=== PATIENT | male | born 1930 | race Caucasian/White ===

== ENCOUNTER 2018-03-25 11:05 | Emergency (ER) | payer OTHER, BC ==
[~2018-03-25] VITALS: Ht 172.7 cm; Wt 98.9 kg
[2018-03-25 11:11] VITALS: Ht 172.7 cm; Wt 98.9 kg
[2018-03-25 11:44] LABS: microscopic required? NO
[2018-03-25 11:58] LABS: BASOPHIL % 0.6 % (0-2); PLATELET COUNT 260 x10^3mcL (130-400); RED CELL DISTRIBUTION WIDTH 13.5 % (11.5-14.5)
[2018-03-25 12:04] LABS: CALCIUM 8.9 mg/dL (8.5-10.1); CHLORIDE SERUM 98 mmol/L (98-107); CREATININE SERUM 1.1 mg/dL (0.7-1.3); GLUCOSE SERUM 104 mg/dL (74-106); POTASSIUM SERUM 4.8 mmol/L (3.5-5.1); SODIUM SERUM 131 mmol/L (136-145)
[2018-03-25 12:09] LABS: ALBUMIN 3.7 g/dL (3.4-5.0); ALKALINE PHOSPHATASE 147 U/L (46-116); ALT/SGPT 19 U/L (16-63); AST/SGOT 19 U/L (15-37); BILIRUBIN TOTAL 0.41 mg/dL (0.20-1.00); TOTAL PROTEIN, SERUM 7.3 g/dL (6.4-8.2)
[2018-03-25] MEDS ORDERED: ELIQUIS5 MG PO (12:25)
[2018-03-25] MEDS ORDERED: DILTIAZEM CD180 MG PO (12:26)
[2018-03-25] MEDS ORDERED: METOPROLOL SUCC50 M2 PO (12:26)
[2018-03-25 12:27] LABS: urine erythrocyte NEGATIVE (NEGATIVE)
[2018-03-25] MEDS ORDERED: SIMVASTATIN10 M1 PO (12:27)
[2018-03-25] MEDS ORDERED: TEGRETOL200 MG PO (12:27)
[2018-03-25] MEDS ORDERED: SERTRALINE100 M1 PO (12:27)
[2018-03-25] MEDS ORDERED: AVODART0.5 M1 PO (12:28)
[2018-03-25] MEDS ORDERED: LORAZEPAM0.5 MG PO (12:28)
[2018-03-25] MEDS ORDERED: PRESERVISION A1 EACH PO (12:29)
[2018-03-25] MEDS ORDERED: STOOL SOFTENER1 TAB PO (12:29)
[2018-03-25] MEDS ORDERED: CLARITIN LIQUI-10 MG PO (12:30)
[2018-03-25] MEDS ORDERED: CULTURELLE1 EACH PO (12:30)
[2018-03-25] MEDS ORDERED: D3-50001 TAB PO (12:31)
[2018-03-25 14:04] VITALS: BP 162/85
== END 2018-03-25 14:04 | disposition home or self-care (01) ==
LOC: ED 11:05
PROVIDERS: Emergency Medicine
DX: N39.0 Urinary tract infection, site not specified (principal); I10 Essential (primary) hypertension; I48.91 Unspecified atrial fibrillation
CPT/HCPCS: 36415; Q0092

== ENCOUNTER 2018-04-01 17:05 | Inpatient (IN) | payer OTHER, BC ==
[~2018-04-01] VITALS: Ht 175.3 cm; Wt 97.3 kg
[~2018-04-01 17:05] MED LIST: AVODART0.5 M1 PO; CLARITIN LIQUI-10 MG PO; CULTURELLE1 EACH PO; D3-50001 TAB PO; DILTIAZEM CD180 MG PO; ELIQUIS5 MG PO; LORAZEPAM0.5 MG PO; METOPROLOL SUCC50 M2 PO; PRESERVISION A1 EACH PO; SERTRALINE100 M1 PO; SIMVASTATIN10 M1 PO; STOOL SOFTENER1 TAB PO; TEGRETOL200 MG PO
[2018-04-01 18:03] LABS: microscopic required? NO
[2018-04-01 18:31] LABS: BASOPHIL % 0.3 % (0-2); PLATELET COUNT 312 x10^3mcL (130-400); RED CELL DISTRIBUTION WIDTH 13.5 % (11.5-14.5)
[2018-04-01 18:33] LABS: UA SPECIFIC GRAVITY 1.025 (1.005-1.035); urine erythrocyte NEGATIVE (NEGATIVE)
[2018-04-01 18:34] LABS: CALCIUM 8.9 mg/dL (8.5-10.1); CARBON DIOXIDE 27.2 mmol/L (21-32); CHLORIDE SERUM 95 mmol/L (98-107); CREATININE SERUM 1.1 mg/dL (0.7-1.3); GLUCOSE SERUM 119 mg/dL (74-106); POTASSIUM SERUM 4.5 mmol/L (3.5-5.1); SODIUM SERUM 131 mmol/L (136-145)
[2018-04-01 18:38] LABS: ALBUMIN 3.8 g/dL (3.4-5.0); ALKALINE PHOSPHATASE 155 U/L (46-116); ALT/SGPT 19 U/L (16-63); AST/SGOT 19 U/L (15-37); BILIRUBIN TOTAL 0.2 mg/dL (0.20-1.00); LIPASE 167 IU/L (73-393); TOTAL PROTEIN, SERUM 7.9 g/dL (6.4-8.2)
[2018-04-01 19:39] LABS: T3 TOTAL 0.82 ng/mL
[2018-04-01 19:41] LABS: MAGNESIUM 2.1 mg/dL (1.8-2.4); PHOSPHOROUS 3.6 mg/dL (2.5-4.9)
[2018-04-01 19:43] LABS: FREE T4 0.76 ng/dL (0.76-1.46); T4(THYROXINE) 6.1 ug/dL (4.7-13.3)
[2018-04-01 20:06] VITALS: BP 134/82
[2018-04-01] MEDS ORDERED: METOPROLOL TART50 MG PO (20:09)
[2018-04-01] MEDS ORDERED: SERTRALINE50 M1 PO (20:18)
[2018-04-01] MEDS ORDERED: DUTASTERIDE-TA1 EACH PO (20:21)
[2018-04-02 05:55] VITALS: BP 113/83
[2018-04-02 06:43] LABS: BASOPHIL % 0.4 % (0-2); PLATELET COUNT 261 x10^3mcL (130-400); RED CELL DISTRIBUTION WIDTH 13.4 % (11.5-14.5)
[2018-04-02 07:01] LABS: CALCIUM 8.7 mg/dL (8.5-10.1); CHLORIDE SERUM 99 mmol/L (98-107); GLUCOSE SERUM 91 mg/dL (74-106); POTASSIUM SERUM 4.4 mmol/L (3.5-5.1); SODIUM SERUM 131 mmol/L (136-145)
[2018-04-02 10:16] VITALS: BP 99/67
[2018-04-02 11:48] LABS: burr cell (echinocyte) 1+; rbc morphology (normal/abnorm) ABNORMAL (NORMAL)
[2018-04-02 18:23] VITALS: BP 115/71
[2018-04-02 22:00] VITALS: BP 156/82
[2018-04-03 05:19] VITALS: BP 134/83
[2018-04-03 09:36] VITALS: BP 119/58
[2018-04-03 17:57] VITALS: BP 115/62
[2018-04-03 18:03] VITALS: Ht 175.3 cm; Wt 97.3 kg
[2018-04-03 21:32] VITALS: BP 167/56
[2018-04-04 06:11] VITALS: BP 149/89
[2018-04-04 10:07] VITALS: BP 142/79
[2018-04-04 12:46] LABS: BASOPHIL % 0.8 % (0-2); PLATELET COUNT 254 x10^3mcL (130-400); RED CELL DISTRIBUTION WIDTH 12.6 % (11.5-14.5)
[2018-04-04 13:16] LABS: CALCIUM 8.8 mg/dL (8.5-10.1); CARBON DIOXIDE 21.2 mmol/L (21-32); CHLORIDE SERUM 100 mmol/L (98-107); GLUCOSE SERUM 95 mg/dL (74-106); MAGNESIUM 1.7 mg/dL (1.8-2.4); PHOSPHOROUS 3.2 mg/dL (2.5-4.9); POTASSIUM SERUM 4.3 mmol/L (3.5-5.1); SODIUM SERUM 129 mmol/L (136-145)
[2018-04-04 17:08] VITALS: BP 147/95
[2018-04-04 20:45] VITALS: BP 133/83
[2018-04-04 22:27] VITALS: BP 133/83
[2018-04-04 22:39] VITALS: BP 133/83
== END 2018-04-04 23:22 | disposition home or self-care (01) | DRG 391 ==
LOC: ED 17:05 → MU 19:07
PROVIDERS: Emergency Medicine; Family Medicine
DX: K57.32 Diverticulitis of large intestine without perforation or abscess without bleeding (principal); K65.9 Peritonitis, unspecified; E87.1 Hypo-osmolality and hyponatremia; I48.91 Unspecified atrial fibrillation; R73.03 Prediabetes; I10 Essential (primary) hypertension; E66.9 Obesity, unspecified; F32.9 Major depressive disorder, single episode, unspecified; Z68.33 Body mass index [BMI] 33.0-33.9, adult; Z87.891 Personal history of nicotine dependence; Z85.820 Personal history of malignant melanoma of skin; Z92.21 Personal history of antineoplastic chemotherapy; Z92.3 Personal history of irradiation; Z79.01 Long term (current) use of anticoagulants; Z22.322 Carrier or suspected carrier of Methicillin resistant Staphylococcus aureus
CPT/HCPCS: 83880; 84439; 97116-GP; J1956; J2270; J2405; J2543; J3475; J3490; J7030; Q0092

== ENCOUNTER 2018-05-23 10:29 | Inpatient (IN) | payer OTHER, BC ==
[~2018-05-23] VITALS: Ht 175.3 cm; Wt 100.2 kg
[~2018-05-23 10:29] MED LIST changes: +DUTASTERIDE-TA1 EACH PO; +METOPROLOL TART50 MG PO; +SERTRALINE50 M1 PO
--- NOTE | 2018-05-23 10:57 | NUR ---
PT AWAKE AND ALERT. PT C/O BLQ PAIN SINCE THIS MORNING WITH INCREASING SEVERITY. PT HAS HX OF MACULAR DEGENERATION, DIVERTICULITOUS, MELANOMA, AND AFIB. PT DENIES SEEING BLOOD IN STOOL OR URINE. PT ON FULL CM. MSE COMPLETED BY DR KHOURY. NARAYAN. RESP E/U
[2018-05-23 11:35] LABS: BASOPHIL % 0.4 % (0-2); PLATELET COUNT 256 x10^3mcL (130-400); RED CELL DISTRIBUTION WIDTH 13.8 % (11.5-14.5)
[2018-05-23 11:36] LABS: CALCIUM 8.5 mg/dL (8.5-10.1); CARBON DIOXIDE 24.2 mmol/L (21-32); CHLORIDE SERUM 102 mmol/L (98-107); CREATININE SERUM 1.1 mg/dL (0.7-1.3); GLUCOSE SERUM 121 mg/dL (74-106); POTASSIUM SERUM 4.4 mmol/L (3.5-5.1); SODIUM SERUM 134 mmol/L (136-145)
[2018-05-23 11:41] LABS: ALBUMIN 3.4 g/dL (3.4-5.0); ALKALINE PHOSPHATASE 115 U/L (46-116); ALT/SGPT 21 U/L (16-63); AST/SGOT 17 U/L (15-37); BILIRUBIN TOTAL 0.3 mg/dL (0.20-1.00); LIPASE 145 IU/L (73-393); TOTAL PROTEIN, SERUM 6.8 g/dL (6.4-8.2)
--- NOTE | 2018-05-23 11:55 | NUR ---
PT TAKEN TO CT VIA KENNETH
--- NOTE | 2018-05-23 14:09 | NUR ---
PT RESTING ON ED GURNEY. PT EASILY AROUSABLE. NAD. RESP E/U. PT ON FULL CM.
--- NOTE | 2018-05-23 14:42 | NUR ---
RECEIVED PT FROM ED VIA [facility], CAME IN DUE TO ABDOMINAL PAIN. AAOX4, W/ PERIODS OF SOME CONFUSION PER PT'S DAUGHTER. ABLE TO FOLLOW COMMANDS. NO SOB NOTED. DENIES CHEST PAIN/PRESSURE. STATED THAT HE HAS MILD ABDOMINAL PAIN, DENIES NAUSEA/VOMITING. ABDOMEN IS SOFT AND ROUND. LAST BM TODAT. VOIDS. C/O FREQUENT URINATION. SIDE RAILS UPX2. CALL LIGHT ON REACH. DAUGHTER AND MEDICAL STUDENT AT BEDSIDE. ENDORSED TO PRIMARY NURSE KRYSTALIN FOR CONTINUITY OF CARE
[2018-05-23 15:05] VITALS: BP 147/93
[2018-05-23 15:07] VITALS: Ht 175.3 cm; Wt 100.2 kg
[2018-05-23 15:20] LABS: CHOLESTEROL/HDL RATIO 2.7; MAGNESIUM 2.3 mg/dL (1.8-2.4); PHOSPHOROUS 3.6 mg/dL (2.5-4.9)
--- NOTE | 2018-05-23 16:02 | NUR ---
PATIENT AND PATIENT'S DAUGHTER MADE AWARE PLAN OF CARE. KEPT NPO.
--- NOTE | 2018-05-23 16:05 | NUR ---
TELEMETRY#5 INPLACED AFIB AT 75. DENIES CHEST PAIN.
[2018-05-23 16:15] LABS: microscopic required? NO
[2018-05-23 16:31] LABS: UA SPECIFIC GRAVITY 1.025 (1.005-1.035); urine erythrocyte NEGATIVE (NEGATIVE)
[2018-05-23 16:37] VITALS: BP 140/85
--- NOTE | 2018-05-23 18:54 | NUR ---
STATED MILD ABDOMINAL PAIN, REFUSED PAIN MEDS OFFERRED. FLAGYL PO GIVEN, DENIES NAUSEA. FORGETFUL AT TIMES. KEPT NPO. IVF NS INFUSING WELL.
--- NOTE | 2018-05-23 19:30 | NUR ---
AOX4. TELE #5, A FIB, HR 70'S. LUNGS CLEAR ON RA. PULSES PALPABLE. NO EDEMA. BOWEL SOUNDS ACTIVE. C/O MILD ABD PAIN. VOIDS FREELY. AMBULATES WITH ASSISTANCE. BRUISE NOTED TO R THIGH. OTHERWISE SKIN INTACT/WARM/DRY. DENIES ALL OTHER PAIN. IV TO RH, PATENT AND INFUSING. DAUGHTER AT BEDSIDE. BED IN LOWEST POSITION, 2 SIDE RAILS UP, CALL LIGHT IN REACH. INSTRUCTED TO CALL FOR ASSISTANCE.
[2018-05-23 20:26] VITALS: BP 128/75
[2018-05-23 21:05] VITALS: BP 124/77
--- NOTE | 2018-05-24 01:39 | NUR ---
RESTING IN BED WITH EYES CLOSED. BREATHING EVEN AND UNLABORED ON RA. NO ACUTE DISTRESS NOTED. WILL CONTINUE TO MONITOR.
[2018-05-24 05:19] VITALS: BP 103/61
--- NOTE | 2018-05-24 07:23 | NUR ---
RECEIVED PATIENT FROM KENYA HARRINGTON. PT RESTING COMFORTABLY IN BED. ALL NEEDS MET.
[2018-05-24 08:44] VITALS: BP 136/88
--- NOTE | 2018-05-24 10:04 | NUR ---
IN TO SEE PATIENT AND ADMINISTER MEDICATION. (SEE eMAR). PT RESTING COMFORTABLY IN BED. ALL NEEDS MET.
--- NOTE | 2018-05-24 11:47 | NUR ---
IN TO SEE PATIENT AND ADMINISTER MEDICATION. (SEE eMAR). PT RESTING COMFORTABLY IN BED. ALL NEEDS MET.
--- NOTE | 2018-05-24 15:56 | NUR ---
IN TO SEE PATIENT AND ADMINISTER MEDICATION. (SEE eMAR). PT RESTING COMFORTABLY IN BED. ALL NEEDS MET.
[2018-05-24 16:41] VITALS: BP 125/80
--- NOTE | 2018-05-24 19:10 | NUR ---
REC'D PT FROM DAY NURSE. DAUGHTER AT BEDSIDE. PT SITTING AT THE SIDE OF THE BED. AAOX3. FORGETFUL AT TIMES. C/O L SIDED THROBBING STEVENSON 10/20. DID NOT WANT ANY PAIN MEDS BUT INFORMED FIORICET IS DUE AT 1999. FOLLOWS COMMANDS, SPEECH CLEAR, NO FACIAL DROOP. TELE 5. DENIES CP, DIZZINESS, OR PALPITATIONS. NO EDEMA NOTED. DENIES RESP DISTRESS OR SOB. BREATHING EVEN/UNLABORED ON RA. ABD SOFT/ROUND. DENIES PAIN AT REST. REPORTS ABD TENDERNESS TO MID LOWER AREA WITH PALPATION. DENIES N/V. VOIDING FREELY. MILD GEN WEAKNESS. AMBULATORY. USES WALKER. ECCHYMOSIS TO R THIGH. IV TO RH PATENT AND INFUSING, SITE WNL. CALL LIGHT WITHIN REACH, BED AT LOWEST POSITION. WILL CONTINUE TO MONITOR.
--- NOTE | 2018-05-24 19:20 | NUR ---
REPORT GIVEN TO MADHAVI HARRINGTON. PT RESTING COMFORTABLY IN BED WITH FAMILY AT BEDSIDE. ALL NEEDS MET. ALL QUESTIONS AND CONCERNS ADDRESSED. ALL CARES ENDORSED.
[2018-05-24 20:49] VITALS: BP 134/77
--- NOTE | 2018-05-24 22:35 | NUR ---
PT RESTLESS AND C/O SOME ANXIETY. ATIVAN GIVEN PER ORDER. WILL MONITOR FOR RELIEF.
--- NOTE | 2018-05-25 01:43 | NUR ---
PT UP TO VOID. PT AWARE HE IS IN THE HOSPITAL AND AWARE OF TELE FOR CARDIAC MONITORING BUT STILL REMOVES IT OCCASIONALLY. INSTRUCTED TO KEEP TELE ON. PT VERBALIZED UNDERTSTANDING. RESTING IN BED LAYING ON L SIDE. BREATHING EVEN/UNLABORED ON RA. NO COMPLAINTS OF PAIN AT THIS TIME. CALL LIGHT WITHIN REACH, BED AT LOWEST POSITION. WILL CONTINUE TO MONITOR.
[2018-05-25 05:32] VITALS: BP 118/73
--- NOTE | 2018-05-25 05:53 | NUR ---
PT RESTING IN BED. AWAKENS WITH VERBAL STIMULI. PT HAS BEEN TAKING TELE OFF PERIODICALLY. STATES HE IS UNABLE TO SLEEP WITH IT ON. AGAIN INFORMED OF IMPORTANCE OF KEEPING TELE IN PLACE TO MONITOR HIS RHYTHM. PT VERBALIZED UNDERSTANDING. TELE 5 CURRENTLY READING A FIB WITH HR 80'S. DENIES ABD PAIN AT THIS TIME, NO BM TONIGHT. REPORTS MILD STEVENSON BUT DENIED PAIN MEDS HE HAS "TAKEN TOO MUCH MEDICINE ALREADY." NO SIGNIFICANT CHANGES DURING SHIFT. CALL LIGHT WITHIN REACH, BED AT LOWEST POSITION. WILL ENDORSE TO DAY NURSE.
[2018-05-25 06:36] LABS: BASOPHIL % 0.4 % (0-2); PLATELET COUNT 213 x10^3mcL (130-400); RED CELL DISTRIBUTION WIDTH 13.2 % (11.5-14.5)
[2018-05-25 06:56] LABS: CALCIUM 9.1 mg/dL (8.5-10.1); CARBON DIOXIDE 26.9 mmol/L (21-32); CHLORIDE SERUM 103 mmol/L (98-107); GLUCOSE SERUM 101 mg/dL (74-106); MAGNESIUM 2.1 mg/dL (1.8-2.4); PHOSPHOROUS 3.6 mg/dL (2.5-4.9); POTASSIUM SERUM 4.8 mmol/L (3.5-5.1); SODIUM SERUM 139 mmol/L (136-145)
--- NOTE | 2018-05-25 07:30 | NUR ---
RECEIVED PT STANDING AT BEDSIDE. PT IS A/A/OX3 FORGETFUL AND DISORIENTED AT TIMES. RESP EVEN AND UNLABORED WITH CLEAR BS BILAT. DENIES ANY SOB/CP/PRESSURE. AFIB ON TELE HR 80S, ON ELEQUIS. NO EDEMA NOTED WITH IVF TO RH NS AT 40ML/HR. ABD SOFT, OBESE, TENDER TO TOUCH TO LOWER ABD. WITH ACTIVE DIVERTICULITIS, NOTED WITH LOOSE STOOLS. VOIDING FREELY WITH OCC STRESS INCONTINENCE. AMBULATORY WITH SUPERVISION. CALL LIGHT IN REACH NEEDS ATTENDED TO.
[2018-05-25 09:24] VITALS: BP 124/75
--- NOTE | 2018-05-25 09:53 | NUR ---
AM MEDS GIVEN FAMILY AT BEDSIDE REPORTED THEY HAS SPOKEN WITH DR. TRINH. UPDATED ON CONDITION. CALL LIGHT IN REACH NEEDS ATTENDED TO. PT INSTRUCTED TO CALL FOR ASSISTANCE SINCE HE WAS GIVEN LAXITIVES AND WILL EXPERIENCE URGENCY TO BR.
--- NOTE | 2018-05-25 10:00 | NUR ---
PT C/O STEVENSON 09/20 TO LEFT SIDE, MEDICATED WITH FIORICET PO ORDER.
[2018-05-25 12:52] VITALS: BP 134/82
--- NOTE | 2018-05-25 16:20 | NUR ---
PT C/O STEVENSON 6/ TO LEFT SIDE. DENIES ANY BLURRED VISION REPORTS CHRONIC STEVENSON D/T INJURY TO C-SPINE. MEDICATED WITH FIORICET PO ORDERED. CONT TO MONITOR.
[2018-05-25 17:32] VITALS: BP 133/77
--- NOTE | 2018-05-25 18:43 | NUR ---
DR. TRINH AT THE [facility]ATION GIVEN REPORT REQUESTED FROM PRIOR COLONOSCOPY. MD REVIEW REPORT AND IS CURRENTLY AT BEDSIDE SPEAKING WITH FAMILY.
--- NOTE | 2018-05-25 19:30 | NUR ---
PT IS A/O x4, FORGETFUL AT TIMES. DENIES ANY STEVENSON OR DIZZINESS. POOR VISION. ON TELE #5, A-FIB. DENIES ANY CHEST PAIN OR PRESSURE. PULSES ARE PRESENT. NO EDEMA NOTED. LUNGS CLEAR IN ALL [place]. ON RA, DENIES ANY SOB. EQUAL CHEST RISE AND FALL. BOWEL SOUNDS PRESENT x4. DENIES ANY ABD DISTRESS. ABD SOFT AND FLAT. SKIN WARM AND INTACT. DENIES ANY PAIN AT THIS TIME. SALINE LOCKED ON RH, INTACT AND CLEAN. PT SITTING UP IN THE CHAIR. DAUGHTER AT SIDE. CALL LIGHT WITHIN REACH. [facility]
[2018-05-25 21:15] VITALS: BP 114/67
--- NOTE | 2018-05-26 01:16 | NUR ---
PT RESTING IN BED WITH BOTH EYES CLOSED. BREATHING EVEN AND UNALBORED. NO SIGN OF DISTRESS NOTED. BED IS AT LOWEST SETTING. CALL LIGHT WITHIN REACH. WILL CONTINUE TO MONITOR.
[2018-05-26 05:18] VITALS: BP 130/85
[2018-05-26 06:34] LABS: CARBON DIOXIDE 24.1 mmol/L (21-32); CHLORIDE SERUM 101 mmol/L (98-107); CREATININE SERUM 1.1 mg/dL (0.7-1.3); GLUCOSE SERUM 99 mg/dL (74-106); PHOSPHOROUS 3.4 mg/dL (2.5-4.9); POTASSIUM SERUM 4.2 mmol/L (3.5-5.1); SODIUM SERUM 134 mmol/L (136-145)
--- NOTE | 2018-05-26 06:52 | NUR ---
PT IS RESTING IN BED. NO SIGN OF DISTRESS. BED IS AT LOWEST SETTING. NO ACUTE EVENT OCCURED AT NIGHT. WILL ENDORSE TO AM NURSE.
[2018-05-26 07:06] LABS: BASOPHIL % 0.3 % (0-2); PLATELET COUNT 212 x10^3mcL (130-400); RED CELL DISTRIBUTION WIDTH 13.3 % (11.5-14.5)
--- NOTE | 2018-05-26 07:20 | NUR ---
SEEN WALKING USING WALKER TO BATHROOM NO ANY DISTRESS NOTED, BREATHING ON ROOM AIR. DENIES PAIN. ON CARDIAC DIET. TELE#5 AFIB HR=84. ON ELIQUIS. S/L TO HAND INTACT AND PATENT. PLAN OF CARE INFORMED. CALL LIGHT PLACED WITHIN EASY REACH. SIDERAILS UP X2.
[2018-05-26 09:53] VITALS: BP 115/74
--- NOTE | 2018-05-26 11:51 | NUR ---
Initial Nutrition Assessment/Nutrition Consult Dx: Acute diverticulitis PMHx: Diverticulosis, A-Fib, macular degeneration, HTN, depression, melanoma on L arm (chemo and radiation tx) PSHx: Appendectomy, cholecystectomy, MSK, lymph node resection Labs: (05/26) Na 134L< K 4.2, BG 99, BUN 16, Cr 1.1, A1c 6, WBC 6.8, H/H 12.8L/37L Meds: Ativan, Cardizem, Claritin, Eliquis, Flagyl, Lipitor, Lopressor, Levaquin, Metamucil, Miralax, [place], Proscar, Tegretol, Tylenol, Vit C, Vit D, Zofran, Zoloft Diet: Cardiac PO Intake: (05/26) B: 80% (05/25) B/L/D 100% Ht: 69" (175 cm) Wt: 220# (100.2 kg) BMI: 32.6 (Obese Class I) IBW: 160# %IBW: 138% AJBW: 175# (79.5 kg) UBW: 200-210# Age: 87 y/o elderly male Food Allergies: NKFA Skin: Intact Robert: 20 Edema: None GI: Last BM x 6 (05/26) Per H&P, pt. admitted with abdominal pain in the lower suprapubic region associated with altered mental status as observed by daughter, when pt. usually has flare-ups. Recently admitted to facility in March 2018 for similar symptoms. Pt. has a history of 6 diverticulitis attacks per provider. Abdominal CT conducted on 05/23/18 with findings suggesting moderate sigmoid diverticulosis with surrounding fat stranding in patterns of acute diverticulitis per provider notes. Pt. endorses improved appetite that is fair to good and is tolerating current diet well. Reports occasional abdominal pain r/t recent flare-up attack, but no c/o GI distress at this time. C: Diet instructions for diverticulosis/diverticulitis Problem with: No c/o N/V/D/C Problems with: Chewing: N Swallowing: N Current appetite: Fair to good, improved since admission Recent wt change: None %wt change: N/A Vitamin/Supplement use: Metamucil Special diet at home: Regular, high fiber diet Physical activity: Ambulates utilizing walker at baseline Education: Diet education provided on the foods recommended/not recommended during diverticulitis flare up. Encouraged pt. to consume adequate amounts of fiber and fluids, especially when asymptomatic. Provided NCM handout on low-fiber/high fiber diet/meal sample plan. Pt. verbalized understanding for diet education material. Estimated Nutritional Needs Based on adjusted body weight 79.5 kg: Energy: 9399-4394 kcal/d (25-27 kcal/kg- adult maintenance) Protein: 80-95 g/d (1.0-1.2 g/kg)-maintenance and preservation of lean body mass Fluid: 7788-4674 ml/d (1 ml/kcal-fluid balance) or per doctor Nutrition Diagnosis 1. Altered GI tract function r/t recent bouts of diverticulitis and history of diverticulosis AEB pt. noted with loose stools since admission and continued occasional c/o abdominal pain. Intervention/RD recommendations 1. Continue Cardiac diet as ordered and as tolerated, as pt. is eating well and is tolerating diet well at this time. 2. If PO intake <75% by following assessment, will recommend ONS to supplement diet. Monitor/Evaluate Goal: PO intake at least 75% of estimated needs Monitor: PO intake, Labs, GI function, diet tolerance F/U in 7 days as low risk (06/02)
[2018-05-26 13:11] VITALS: BP 115/74
--- NOTE | 2018-05-26 13:45 | NUR ---
DISCHARGE INSTRUCTION EXPLAINED AND GIVEN TO PATIENT'S DAUGHTER WHO IS AAOX4. S/L TO RT REMOVED WITH CATHETER INTACT, NO REDNESS OR SWELLING TO SITE, DRSG APPLIED. TELE#5 RETURNED TO [place]. CONDITION STABLE UPON DISCHARGE. BROUGHT VIA WC ACCOMPANIED BY NICKI RAMIRES AND PATIENT'S DAUGHTER TO LOBBY.
== END 2018-05-26 13:51 | disposition home or self-care (01) | DRG 391 ==
LOC: ED 10:29 → MU 13:30 → DU 13:30 → MU 14:50 → DU 05-24 07:24
PROVIDERS: Emergency Medicine; Family Medicine; ADMIT Internal Medicine
DX: K57.32 Diverticulitis of large intestine without perforation or abscess without bleeding (principal); K65.9 Peritonitis, unspecified; E87.1 Hypo-osmolality and hyponatremia; J98.11 Atelectasis; F41.8 Other specified anxiety disorders; I48.91 Unspecified atrial fibrillation; I11.9 Hypertensive heart disease without heart failure; I25.10 Atherosclerotic heart disease of native coronary artery without angina pectoris; K59.00 Constipation, unspecified; R73.03 Prediabetes; N40.0 Benign prostatic hyperplasia without lower urinary tract symptoms; E66.9 Obesity, unspecified; Z68.32 Body mass index [BMI] 32.0-32.9, adult; Z87.891 Personal history of nicotine dependence; Z85.820 Personal history of malignant melanoma of skin; Z92.21 Personal history of antineoplastic chemotherapy; Z92.3 Personal history of irradiation; Z79.01 Long term (current) use of anticoagulants
CPT/HCPCS: 83880; 87046; 87046-59; J1956; J3490; J7030; Q0092

== ENCOUNTER 2018-06-01 20:02 | Inpatient (IN) | payer OTHER, BC ==
[~2018-06-01] VITALS: Ht 175.3 cm; Wt 98.1 kg
[2018-06-01 20:14] VITALS: Ht 175.3 cm; Wt 98.1 kg
--- NOTE | 2018-06-01 20:19 | NUR ---
EKG BEING DONE.
[2018-06-01 21:08] LABS: BASOPHIL % 0.5 % (0-2); PLATELET COUNT 235 x10^3mcL (130-400); RED CELL DISTRIBUTION WIDTH 13.7 % (11.5-14.5)
[2018-06-01 21:29] LABS: CALCIUM 8.6 mg/dL (8.5-10.1); CARBON DIOXIDE 21.1 mmol/L (21-32); CHLORIDE SERUM 97 mmol/L (98-107); CREATININE SERUM 1.1 mg/dL (0.7-1.3); GLUCOSE SERUM 124 mg/dL (74-106); POTASSIUM SERUM 4.5 mmol/L (3.5-5.1); SODIUM SERUM 128 mmol/L (136-145)
[2018-06-01 21:39] LABS: T3 TOTAL 0.84 ng/mL
[2018-06-01 21:59] LABS: CK-MB 1.4 ng/mL (0-3.6)
[2018-06-01 22:00] LABS: ALBUMIN 3.4 g/dL (3.4-5.0); ALKALINE PHOSPHATASE 132 U/L (46-116); ALT/SGPT 13 U/L (16-63); AST/SGOT 23 U/L (15-37); BILIRUBIN TOTAL 0.36 mg/dL (0.20-1.00); C REACTIVE PROTEIN 1.6 mg/dL (<=0.9); ERYTHROCYTE SED RATE 25 mm/hr (0-20); TOTAL PROTEIN, SERUM 7.1 g/dL (6.4-8.2)
--- NOTE | 2018-06-01 22:14 | NUR ---
PT UP TO BEDSIDE FOR UA ATTEMPT.
[2018-06-01 22:20] LABS: FREE T4 0.92 ng/dL (0.76-1.46); FREE THYROXINE INDEX 1.9 ug/dL (1.4-4.5); T4(THYROXINE) 5.4 ug/dL (4.7-13.3)
--- NOTE | 2018-06-01 23:21 | NUR ---
REPORT TO JUANY ARORA [facility].
[2018-06-01 23:38] VITALS: BP 127/83
--- NOTE | 2018-06-01 23:41 | NUR ---
RECEIVED PT FROM ED VIA KRISTA. ORIENTED PT TO ROOM AND SURROUNDINGS. IV NOTED TO RFA PATENT AND INTACT. TELE 1 PLACED ON PT READING AFIB. INSTRUCTED PT ON THE USE OF CALL LIGHT FOR ASSISTANCE. ENDORSED PT TO PRIMARY NURSE KATIE
--- NOTE | 2018-06-01 23:45 | NUR ---
RECEIVED PT FROM JUANY ROLON. PT AOX3. DENIES STEVENSON/DIZZINESS. TELE #1, HR 86, AFIB. DENIES CP/PRESSURE. PULSES PALPABLE,NO EDEMA NOTED. LUNG SOUNDS DIMINISHED, ON RA. DENIES SOB/DIFFICULTY BREATHING. BOWEL SOUNDS ACTIVE. VOIDS FREELY. GEN WEAKNESS. AMBULATORY WITH WALKER. ECCHYMOSIS TO RFA. IV TO RFA, INTACT AND PATENT. BED IN LOWEST POSITION. CALL LIGHT WITHIN REACH. WILL CONTINUE TO MONITOR.
[2018-06-02 00:16] LABS: CHOLESTEROL/HDL RATIO 2.8; MAGNESIUM 2.1 mg/dL (1.8-2.4); PHOSPHOROUS 3.7 mg/dL (2.5-4.9)
[2018-06-02 00:35] VITALS: BP 127/83
--- NOTE | 2018-06-02 01:13 | NUR ---
PT C/O STEVENSON. MEDICATED PER EMAR WITH TYLENOL. WILL CONTINUE TO MONITOR.
--- NOTE | 2018-06-02 01:13 | NUR ---
PT C/O STEVENSON. MEDICATED PER EMAR. WILL CONTINUE TO MONITOR.
[2018-06-02 03:01] LABS: microscopic required? NO
[2018-06-02 03:11] LABS: UA SPECIFIC GRAVITY 1.025 (1.005-1.035); urine erythrocyte NEGATIVE (NEGATIVE)
--- NOTE | 2018-06-02 04:18 | NUR ---
PT C/O STEVENSON AND BACKPAIN. MEDICATED PER EMAR. WILL CONTINUE TO MONITOR.
[2018-06-02 06:04] VITALS: BP 118/72
[2018-06-02 06:40] LABS: BASOPHIL % 0.4 % (0-2); PLATELET COUNT 203 x10^3mcL (130-400); RED CELL DISTRIBUTION WIDTH 13.6 % (11.5-14.5)
[2018-06-02 07:03] LABS: CARBON DIOXIDE 24.5 mmol/L (21-32); CHLORIDE SERUM 97 mmol/L (98-107); GLUCOSE SERUM 91 mg/dL (74-106); MAGNESIUM 2.1 mg/dL (1.8-2.4); PHOSPHOROUS 3.3 mg/dL (2.5-4.9); POTASSIUM SERUM 4.6 mmol/L (3.5-5.1); SODIUM SERUM 131 mmol/L (136-145)
--- NOTE | 2018-06-02 07:17 | NUR ---
RECEIVED PT FROM SHIFT NURSE A/OX4 RESTING IN BED. RESP EVEN AND UNLABORED ON RA. DENIES SOB. BED IN LOW POSITION. FALL PRECAUTIONS IN PLACE. IV INTACT AND PATENT. CALL LIGHT WITHIN REACH. WILL CONTINUE TO MONITOR.
[2018-06-02 09:40] VITALS: BP 127/59
--- NOTE | 2018-06-02 10:46 | NUR ---
PT C/O OF HEADACHE 10/20. GAVE TYLENOL ORDERED. WILL CONTINUE TO MONITOR.
--- NOTE | 2018-06-02 10:47 | NUR ---
PT C/O OF SORETHROAT. GAVE CEPACOL ORDERED. WILL CONTINUE TO MONITOR.
--- NOTE | 2018-06-02 11:36 | NUR ---
PT ASLEEP BUT AROUSABLE. WILL CONTINUE TO MONITOR.
[2018-06-02 12:45] VITALS: BP 112/58
--- NOTE | 2018-06-02 14:38 | NUR ---
PT ASLEEP IN BED WITH NO ACUTE DISTRESS NOTED. FAMILY AT BEDSIDE. BED IN LOW POSITION. CALL LIGHT WITHIN REACH. WILL CONTINUE TO MONITOR.
[2018-06-02 17:16] VITALS: BP 154/84
--- NOTE | 2018-06-02 18:23 | NUR ---
PT ASLEEP IN BED BUT AROUSABLE. NO ACUTE DISTRESS NOTED. FAMILY MEMBERS AT BEDSIDE. BED IN LOW POSITION. IV INTACT AND PATENT. FALL PRECAUTIONS IN PLACE. CALL LIGHT WITHIN REACH. WILL BE ENDORSED.
[2018-06-02 20:22] VITALS: BP 122/73
--- NOTE | 2018-06-02 20:26 | NUR ---
PT CONFUSED FORGETFUL DOESNT FOLLOW REGULAR CONVERSATION JUST STATED HER MIND IS NOT WELL ENOUGH TO THINK, DENIES HEADACHE OR DIZZINESS, POOR SAFETY AWARENESS BED ALARM ON, DAUGHTER AT BEDSIDE, PT HAS IVF NS @ 70CC/HR IV ACCESS RFA PATENT NON INFIL, NO COUGHING OR CHEST CONGESTION, DIM LUNGS SOUND AT THE BASES, RA, TELE #1 INPLACED AFIB NO CP OR PRESSURE SHIFT ASSESSMENT DONE, CALL LIGHT AT REACH CONT TO MONITOR.
--- NOTE | 2018-06-02 21:25 | NUR ---
PT C/O GEN PAIN 10/20 PER ASSESSMENT NOT IN ANY DISTRESS, REPOSITIONED TO COMFORT, [place] PO GIVEN PER PRN ORDER CONT TO MONITOR.
--- NOTE | 2018-06-02 21:39 | NUR ---
DAUGHTER REMAINED AT BEDSIDE PT STILL RESTLESS, MUMBLING, AND TALKING NO SENSE PER DAUGHTER, ASKING FOR SOMETHING TO CALM PT DOWN, ATIVAN PO GIVEN PER PRN ORDER, MINIMIZED ROOM ACTIVITY AND KEEP PT COMFORTABLE IN BED, DAUGHTER REQUESTED TO STAY OVERNIGHT, WILL CONT TO MONITOR.
[2018-06-03 05:27] VITALS: BP 121/77
--- NOTE | 2018-06-03 06:00 | NUR ---
PT SLEEPING INTERMITTENT DURING THE SHIFT NO SIGNIFICANT CHANGES, DAUGHTER AT THE BEDSIDE STAYED FOR THE NIGHT, NO DISTRESS, NO SIGNIFICANT CHANGES, KEEP DRY AND CLEAN AT ALL TIMES, WILL CONT TO MONITOR.
[2018-06-03 06:01] LABS: BASOPHIL % 0.3 % (0-2); PLATELET COUNT 216 x10^3mcL (130-400); RED CELL DISTRIBUTION WIDTH 13.4 % (11.5-14.5)
[2018-06-03 06:27] LABS: CALCIUM 8.5 mg/dL (8.5-10.1); CARBON DIOXIDE 24.9 mmol/L (21-32); CHLORIDE SERUM 97 mmol/L (98-107); CREATININE SERUM 0.9 mg/dL (0.7-1.3); GLUCOSE SERUM 102 mg/dL (74-106); POTASSIUM SERUM 4.6 mmol/L (3.5-5.1); SODIUM SERUM 131 mmol/L (136-145)
--- NOTE | 2018-06-03 07:08 | NUR ---
RECEIVED PT FROM SHIFT NURSE SITTING IN BED A/0X2. NO ACUTE DISTRESS NOTED. FAMILY MEMBER AT BEDSIDE. TELE 1 AFIB. IV INTACT AND INFUSING WELL. BED IN LOW POSITION. FALL PRECAUTIONS IN PLACE. CALL LIGHT WITHIN REACH. WILL CONTINUE TO MONITOR.
--- NOTE | 2018-06-03 09:36 | NUR ---
PT ASLEEP BUT AROUSABLE. WILL CONTINUE TO MONITOR.
[2018-06-03 09:42] VITALS: BP 127/68
--- NOTE | 2018-06-03 10:43 | NUR ---
PT APPEARED RESTLESS AND GAVE ATIVAN ORDERED. WILL CONTINUE TO MONITOR.
--- NOTE | 2018-06-03 12:25 | NUR ---
PT SITTING UP IN BED IN NO ACUTE DISTRESS. DENIES HAVING A HEADACHE AT THIS TIME. BED IN LOW POSITION. CALL LIGHT WITHIN REACH. WILL CONTINUE TO MONITOR.
[2018-06-03 13:00] VITALS: BP 129/90
[2018-06-03 18:00] VITALS: BP 130/85
--- NOTE | 2018-06-03 18:15 | NUR ---
PT ASLEEP IN BED BUT AROUSABLE. RESP EVEN AND UNLABORED ON RA. NO ACUTE DISTRESS NOTED. FAMILY MEMBER AT BEDSIDE. NO IV ACCESS. DR. KARIMI AWARE. BED IN LOW POSITION. CALL LIGHT WITHIN REACH. WILL BE ENDORSED.
--- NOTE | 2018-06-03 19:35 | NUR ---
RECEIVED AWAKE VERBAL WITH CONFUSION NO HEADACHE OR DIZZINESS, RUNNING AFIB / AFLUTTER IN THE MONITOR NO CP OR PRESSURE HR @ 90'S TELE #1, NO DISTRESS LUNGS DIM AT THE BASES, ON RA, WITH OCC COUGHING NON PRODUCTIVE, NO IV ACCESS HARD STICK PER ENDORSEMENT MULTIPLE ATTEMPTS BUT NO SUCCESS MD IS AWARE, SCD'S FOR DVT PROPHYLAXIS, PATIENT ABLE TO AMBULATE UNSTEADY GAIT, USES URINALS, V/S STABLE, SHIFT ASSESSMENT DONE, DAUGHTER AT BEDSIDE, WILL CONT TO MONITOR AND PROCEED TO CURRENT PLAN OF CARE.
[2018-06-03 20:16] VITALS: BP 125/86
--- NOTE | 2018-06-03 21:20 | NUR ---
C/O HEADACHE 09/20 NO DIZZINESS, BP 125/86, HR 101, AFEBRILE 98.7, REPOSITIONED SELF TO COMFORT TYLENOL PO 650 MG GIVEN PER PRN ORDER FOR HEADACHE, WILL CONT TO MONITOR.
[2018-06-04] VITALS (7 sets, daily range): BP systolic 100–133; BP diastolic 58–90
--- NOTE | 2018-06-04 02:24 | NUR ---
PT COMPLAINING OF HEADACHE AND REQUESTING TYLENOL. DAUGHTER AT BEDSIDE. GIVEN TYLENOL 650MG PO ORDERED. CALL LIGHT WITHIN REACHED.
[2018-06-04 06:34] LABS: BASOPHIL % 0.3 % (0-2); PLATELET COUNT 182 x10^3mcL (130-400); RED CELL DISTRIBUTION WIDTH 13.5 % (11.5-14.5)
[2018-06-04 06:52] LABS: CALCIUM 8.4 mg/dL (8.5-10.1); CARBON DIOXIDE 24.6 mmol/L (21-32); CHLORIDE SERUM 95 mmol/L (98-107); CREATININE SERUM 0.9 mg/dL (0.7-1.3); GLUCOSE SERUM 99 mg/dL (74-106); POTASSIUM SERUM 4.7 mmol/L (3.5-5.1); SODIUM SERUM 129 mmol/L (136-145)
--- NOTE | 2018-06-04 06:58 | NUR ---
CEPACOL LOZENGES GIVEN PER PT REQUEST C/O SORE THROAT, SLEPT INTERMITTENT DURING THE SHIFT, NEEDS MET, STILL NO IV ACCESS, AM BLD DRAWS DONE, WILL ENDORSE TO INCOMING SHIFT FOR F/U CARE.
--- NOTE | 2018-06-04 07:45 | NUR ---
AWAKE,ALERT W/ PERIODS OF CONFUSION AND FORGETFULNESS,REQUIRES MOD. ASSIST. W/ ADL NEEDS ,ABLE TO AMBULATE IN THE BATHROOM AND VOIDING W/ ASIST W/ WALKER.REFUSED BREAKFAST C/O NAUSEATED ,RECIEVED PT. NO IV ACCESS HARD STICK M/D AWARE.NO ACUTE RESP. DISTRESS NOTED. CALL LIGHT W/ IN REACH. DAUGHTER AT BEDSIDE.WALLY CONT. PLAN OF CARE.
--- NOTE | 2018-06-04 10:50 | NUR ---
UNABLE TO SEE PATIENT FOR P.T. DUE TO INCREASED HEART RATE, PER DAUGHTER AND NURSING.
--- NOTE | 2018-06-04 13:49 | NUR ---
C/O HEADACHE, TYLENOL GIVEN
--- NOTE | 2018-06-04 15:38 | NUR ---
PT. APPEARS CONFUSED AND FORGETFUL ,RE- ORIENTED TO ROOM AND SURROUNDINGS,BED ALARM ON ,CALL LIGHT W/ IN REACH .WILL CONT. TO MONITOR PT.
--- NOTE | 2018-06-04 15:46 | NUR ---
PHYSICAL THERAPY DAILY NOTES CO-SIGN All documentation done by the [facility] Director for 06/04/18 has been reviewed. I agree with the documentation. Reviewed/Co-Signed by: Gail Henry PT Documentation Done by:PEPE VELASCO
--- NOTE | 2018-06-04 17:42 | NUR ---
NO ACUTE RESP. DISTRESS NOTED.
--- NOTE | 2018-06-04 19:30 | NUR ---
RECEIVED PT FROM DAY SHIFT RN. PT IS AWAKE, ALERT AND ORIENTED X3 AT THIS TIME. PT DENIES ANY HEADACHE, DIZZINESS, CHEST PAIN, N/V. TELE 1 AFIB HR 105. LUNG SOUNDS CTA ON RA WITH COUGH. IV RIGHT WRIST PATENT, SL. BUE DISCOLORATION NOTED. PT STATES HE IS COMFORTABLE AT THIS TIME. CALL BUTTON WITHIN REACH. DAUGHTER AT BEDSIDE. SAFETY PRECAUTIONS IN PLACE. WILL CONTINUE TO MONITOR.
--- NOTE | 2018-06-04 23:32 | NUR ---
PT ASLEEP AT THIS TIME. NO SIGNS OF DISTRESS NOTED. CALL BUTTON WITHIN REACH. DAUGHTER AT BEDSIDE. WILL CONTINUE TO MONITOR.
--- NOTE | 2018-06-05 00:05 | NUR ---
PT REPORTED HAVING A HEADACHE, MEDICATED PER EMAR. WILL CONTINUE TO MONITOR.
--- NOTE | 2018-06-05 02:13 | NUR ---
PT ASLEEP AT THIS TIME. NO SIGNS OF DISTRESS NOTED. DAUGHTER AT BEDSIDE. WILL CONTINUE TO MONITOR.
--- NOTE | 2018-06-05 04:54 | NUR ---
PT AOX3, CONFUSED AT TIMES. PT ON RA WITH NO SOB. PT SLEPT MOST OF THE NIGHT WITH NO SIGNS OF DISTRESS NOTED. IV RIGHT WRIST PATENT, SL. PT ON FL RESTRICTIONS AND PT MADE AWARE. DAUGHTER AT BEDSIDE. SAFETY PRECAUTIONS IN PLACE. WILL CONTINUE TO MONITOR.
[2018-06-05 05:50] VITALS: BP 108/66
--- NOTE | 2018-06-05 07:18 | NUR ---
PT AWAKE IN BED, LAB AT BEDSIDE. NO SIGNS OF DISTRESS NOTED. ENDORSED CARE TO DAY SHIFT RN, ALL QUESTIONS ADRESSED.
--- NOTE | 2018-06-05 07:45 | NUR ---
AWAKE,ALERT, CONFUSED AND FORGETFUL BUT ABLE TO FOLLOW SIMPLE COMMANDS,GEN. WEAKNESS ,ABLE TO AMB. W/ P.T W/ WALKER .HL PATENT IN RT. HAND.NO ACUTE RESP. DISTRESS NOTED. CALL LIGHT W/ IN REACH.NO ACUTE DISTRESS NOTED. WILL CONT. PLAN OF CARE.
[2018-06-05 07:57] VITALS: BP 142/87
[2018-06-05 08:34] LABS: BASOPHIL % 0.4 % (0-2); PLATELET COUNT 213 x10^3mcL (130-400); RED CELL DISTRIBUTION WIDTH 13.4 % (11.5-14.5)
[2018-06-05 09:08] LABS: CALCIUM 9.1 mg/dL (8.5-10.1); CHLORIDE SERUM 94 mmol/L (98-107); CREATININE SERUM 0.9 mg/dL (0.7-1.3); GLUCOSE SERUM 97 mg/dL (74-106); POTASSIUM SERUM 4.6 mmol/L (3.5-5.1); SODIUM SERUM 129 mmol/L (136-145)
[2018-06-05 12:13] VITALS: BP 116/78
--- NOTE | 2018-06-05 14:14 | NUR ---
PHYSICAL THERAPY DAILY NOTES CO-SIGN All documentation done by the Critical Care Clinical Nurse Specialist for 06/05/18 has been reviewed. I agree with the documentation. Reviewed/Co-Signed by: Gail Henry PT Documentation Done by:PEPE VELASCO
[2018-06-05] MEDS ORDERED: DIG125 PO (14:28)
[2018-06-05] MEDS ORDERED: CARDIZEM CD240 MG PO (14:28)
[2018-06-05 14:44] VITALS: BP 116/78
--- NOTE | 2018-06-05 15:40 | NUR ---
PT. WENT HOME W/ STABLE CONDITION PER W/C ACC. W/ HIS DAUGHTER,DISCHARGED INSTRUCTION AND PRESCRIPTION GIVEN AND DISCUSED TO PT/DAUGHTER AND VERBALIZED UNDERSTANDING OF INSTRUCTIONS GIVEN . NO ACUTE DISTRESS NOTED.ESCORTED BY NURSE DOWN IN THE LOBBY.
== END 2018-06-05 15:40 | disposition home or self-care (01) | DRG 641 ==
LOC: ED 20:02 → DU 22:52
PROVIDERS: Specialist; ADMIT Internal Medicine
DX: E86.0 Dehydration (principal); E44.1 Mild protein-calorie malnutrition; E87.1 Hypo-osmolality and hyponatremia; R09.02 Hypoxemia; J06.9 Acute upper respiratory infection, unspecified; I95.9 Hypotension, unspecified; I48.2 Chronic atrial fibrillation; I25.5 Ischemic cardiomyopathy; I11.9 Hypertensive heart disease without heart failure; R73.03 Prediabetes; E78.5 Hyperlipidemia, unspecified; F41.9 Anxiety disorder, unspecified; F32.9 Major depressive disorder, single episode, unspecified; E66.9 Obesity, unspecified; Z68.31 Body mass index [BMI] 31.0-31.9, adult; Z85.820 Personal history of malignant melanoma of skin; Z92.3 Personal history of irradiation; Z87.891 Personal history of nicotine dependence; Z79.01 Long term (current) use of anticoagulants; Z66 Do not resuscitate
CPT/HCPCS: 36600; 82962; 84439; 87804; 97110-GP; 97116-GP; 97530-GP; J1160; J7030; J7620; Q0092

== ENCOUNTER 2018-06-09 12:49 | Emergency (ER) | payer OTHER, BC ==
[~2018-06-09] VITALS: Ht 170.2 cm; Wt 96.2 kg
[~2018-06-09 12:49] MED LIST changes: +CARDIZEM CD240 MG PO; +DIG125 PO
[2018-06-09 13:01] VITALS: Ht 170.2 cm; Wt 96.2 kg
[2018-06-09 15:16] LABS: BASOPHIL % 0.5 % (0-2); PLATELET COUNT 314 x10^3mcL (130-400); RED CELL DISTRIBUTION WIDTH 13.4 % (11.5-14.5)
[2018-06-09 15:22] LABS: microscopic required? NO
[2018-06-09 15:25] LABS: CALCIUM 9.2 mg/dL (8.5-10.1); CHLORIDE SERUM 97 mmol/L (98-107); CREATININE SERUM 0.9 mg/dL (0.7-1.3); GLUCOSE SERUM 105 mg/dL (74-106); POTASSIUM SERUM 4.9 mmol/L (3.5-5.1); SODIUM SERUM 133 mmol/L (136-145)
[2018-06-09 15:29] LABS: ALBUMIN 3.5 g/dL (3.4-5.0); ALKALINE PHOSPHATASE 148 U/L (46-116); ALT/SGPT 27 U/L (16-63); AST/SGOT 27 U/L (15-37); BILIRUBIN TOTAL 0.36 mg/dL (0.20-1.00); LIPASE 151 IU/L (73-393); TOTAL PROTEIN, SERUM 7.7 g/dL (6.4-8.2)
[2018-06-09 15:50] LABS: urine erythrocyte NEGATIVE (NEGATIVE)
[2018-06-09 19:32] VITALS: BP 146/92
== END 2018-06-09 19:32 | disposition home or self-care (01) ==
LOC: ED 12:49
PROVIDERS: Emergency Medicine
DX: E86.0 Dehydration (principal); K57.30 Diverticulosis of large intestine without perforation or abscess without bleeding; I48.91 Unspecified atrial fibrillation; F32.9 Major depressive disorder, single episode, unspecified; Z98.890 Other specified postprocedural states
CPT/HCPCS: J7040; Q0092